=== PATIENT | male | born 1930 | race Asian ===

== ENCOUNTER → 2017-07-30 | Outpatient (CLI) | payer MEDICARE, OTHER ==
[~2017-07-30] MED LIST: ALBU8HFA4 IH; ALLO100T PO; CALC-590 PO; DORZ10DR OP; DOXA2TAB PO; FOSI20TA3 PO; HYDR25TA PO; SIMV-260 PO; SITA25 PO; WARF3TAB29 PO; ZALATAN OP
== END | disposition home or self-care (01) ==
LOC: RADPV 10:43
PROVIDERS: ATTEND Internal Medicine
DX: I51.7 Cardiomegaly (principal); I70.0 Atherosclerosis of aorta; I50.33 Acute on chronic diastolic (congestive) heart failure; J44.9 Chronic obstructive pulmonary disease, unspecified
CPT/HCPCS: 71046

== ENCOUNTER → 2018-11-18 | Outpatient (CLI) | payer MEDICARE, OTHER ==
[~2018-11-18] MED LIST changes: -FOSI20TA3 PO; +FOSI20TA97 PO
== END | disposition home or self-care (01) ==
LOC: RADPV 08:36
PROVIDERS: ATTEND Internal Medicine
DX: R10.10 Upper abdominal pain, unspecified (principal)
CPT/HCPCS: 76700

== ENCOUNTER → 2018-12-02 | Outpatient (CLI) | payer MEDICARE, OTHER | END | disposition home or self-care (01) | LOC: RADPV 09:07 | PROVIDERS: ATTEND Internal Medicine | DX: I08.1 Rheumatic disorders of both mitral and tricuspid valves (principal); I70.90 Unspecified atherosclerosis; J44.9 Chronic obstructive pulmonary disease, unspecified | CPT/HCPCS: 93306 ==